=== PATIENT | male | born 1960 | race Caucasian/White ===

== ENCOUNTER 2016-10-27 12:37 | Emergency (ER) | payer MEDICARE ==
[~2016-10-27 12:37] MED LIST: ALBUTEROL17 GM INH; PREDNISONE PO
== END 2016-10-27 12:48 | disposition left against medical advice (07) ==
LOC: CED 12:37
DX: Z53.21 Procedure and treatment not carried out due to patient leaving prior to being seen by health care provider (principal)

== ENCOUNTER 2016-12-18 11:11 | Emergency (ER) | payer MEDICARE | END 2016-12-18 11:15 | disposition home or self-care (01) | LOC: CED 11:11 | DX: K59.00 Constipation, unspecified (principal); F17.200 Nicotine dependence, unspecified, uncomplicated | CPT/HCPCS: 99282 ==

== ENCOUNTER 2017-01-18 09:55 | Emergency (ER) | payer MEDICARE ==
--- NOTE | ~2017-01-18 | CT4 ---
[facility] A Service of [facility] & [facility] RADIOLOGY TEXT RESULTS PATIENT: FIOR ALARCON LOCATION: [facility] : 56 UNIT #: [id number] AGE: [address]: Maksim Lakhani MD SEX: M ORDER DR: [id number] [facility] [address] [place], [place] [address] [id number] MR#: [id number] Acc #: [id number] NAME: FIOR ALARCON : 1960 SEX: M STUDY DATE/TIME: 01/18/2017 12:05 UNIT: [facility] ROOM: STUDY DESCRIPTION: CT Abd and Pelv Wo Cont Attending Physician: Maksim Lakhani M.D. Ordering Physician: Maksim Lakhani M.D. Primary Care Physician: Artur Tapia M.D. MEDICAL IMAGING REPORT This report is preliminary unless electronic signature is present EXAM CT abdomen and pelvis without contrast 01/18/2017 1205 hours HISTORY 56-year-old man began urinating blood yesterday. Painless hematuria. Prior history of kidney stones 4-5 years ago. COMPARISON None. TECHNIQUE Helical noncontrasted images were obtained from the lung bases through the pubic symphysis. No oral or intravenous contrast was administered. Sagittal and coronal reconstructions were performed. Total exam DLP 738 mGy-cm. This CT examination was performed with one or more of the following radiation dose reduction techniques: automatic exposure control, adjustment of mA and/or kV according to patient size, and iterative reconstruction. FINDINGS Images through the lung bases are clear of acute density. There is minimal pleural thickening which is smooth at the medial left lung base. Images through the abdomen demonstrate mild low attenuation of the liver relative to the spleen which could indicate underlying fatty infiltration. There is no focal liver lesion. The spleen, pancreas, gallbladder and bile ducts are normal. The adrenal glands are normal. The kidneys demonstrate no mass, stone or distension. There is no ureterectasis on the right. There is a very small left upper ureteral calcification on image 79 measuring 3 mm which is at the level of the superior endplate of L4. There is no significant ureterectasis. No STS. [facility] A Service of [facility] & [facility] RADIOLOGY TEXT RESULTS PATIENT: FIOR ALARCON LOCATION: [facility] : 56 UNIT #: [id number] AGE: [address]: Maksim Lakhani MD SEX: M ORDER DR: distal ureteral calculus. The bladder is contracted. There is no definite bladder wall thickening seen however evaluation is limited given the lack of contrast and the lack of distension. Pelvic phleboliths are present. There are benign calcifications in the prostate. The stomach and small bowel are normal. The appendix is normal. There are scattered colonic diverticula throughout the colon without wall thickening. These are most numerous in the descending colon/sigmoid colon junction region. IMPRESSION 1. There is a 3 mm calculus in the left mid ureter at the level of the superior endplate of L4 without significant pelvocaliectasis. No intrarenal stones are seen. 2. The bladder is contracted and unopacified. No lesion is seen. 3. Normal appendix. 4. Diffuse scattered colonic diverticula with numerous diverticula in the descending colon and sigmoid colon. No definite wall thickening is seen. STAT * RESULT Dictated by... Lenora Almazan M.D. THIS IS AN ELECTRONICALLY VERIFIED REPORT Lenora Almazan M.D. at 01/18/2017 2:31 PM ALICJA/estevan TD: 01/18/2017 12:34 JOB #: [id number] MEDICAL IMAGING REPORT Page 1 of 1 COPY
[2017-01-18 11:06] LABS: URINE SOURCE CLEAN CATCH
[2017-01-18 11:11] LABS: URINE APPEARANCE CLOUDY; URINE BILIRUBIN NEG (NEG); URINE BLOOD 3+ (NEG); URINE COLOR DK YELLOW; URINE GLUCOSE NEG (NEG); URINE KETONE NEG (NEG); URINE LEUKOCYTE ESTERASE TRACE (NEG); URINE NITRATE NEG (NEG); URINE PROTEIN 1+ (NEG); URINE SPECIFIC GRAVITY 1.025 (1.003-1.035)
[2017-01-18 11:13] LABS: URBCS1 AUWI INNUM /[HPF] (0-2); URINE BACTERIA AUWI NEG (NEGATIVE); URINE SQUAMOUS EPITHELIAL CELL NONE SEEN /[HPF]
[2017-01-18 11:14] LABS: CULTURE INDICATED? NO
[2017-01-18 11:18] LABS: BASOPHIL# 0.1 X10e3 (0-0.3); BASOPHIL% 1.6 % (0-2.5); EOSINOPHIL# 0.5 X10e3 (0-0.7); EOSINOPHIL% 6.7 % (0.0-7.0); HEMATOCRIT 44.2 % (38.0-50.0); HEMOGLOBIN 15.1 gm/dL (13.0-16.0); LYMPHOCYTE# 1.9 X10e3 (1.0-3.5); LYMPHOCYTE% 27.8 % (17.0-45.0); MEAN CORPUSCULAR HEMOGLOBIN 29.1 PG (28-34); MEAN CORPUSCULAR HGB CONC 34.2 g/dL (30-36); MEAN PLATELET VOLUME 7.2 FL (6.5-11.5); MONOCYTE# 0.6 X10e3 (0-1.0); NEUTROPHIL# 3.8 X10e3 (1.5-7.1); NEUTROPHIL% 54.9 % (40-75); PLATELET COUNT 174 X10e3 (140-420); RED CELL DISTRIBUTION WIDTH 13.2 % (11.0-15.5); WHITE BLOOD COUNT 6.9 X10e3 (4.0-10.5)
[2017-01-18 11:19] LABS: DIFF IND NO
[2017-01-18 11:50] LABS: ALBUMIN SERUM 4.4 g/dL (3.5-5.0); BILIRUBIN, DIRECT 0.1 mg/dL (0.0-0.2); BILIRUBIN,INDIRECT 0.7 mg/dL (0.0-0.9); BILIRUBIN,TOTAL 0.8 mg/dL (0.2-2.0); GLOM FILT RATE Estimated 82.6 mL/min (>60); PROTEIN TOTAL SERUM 7.2 g/dL (6.0-8.3)
== END 2017-01-18 13:35 | disposition home or self-care (01) ==
LOC: CED 09:55
PROVIDERS: Emergency Medicine
DX: N20.0 Calculus of kidney (principal); F17.200 Nicotine dependence, unspecified, uncomplicated; Z87.442 Personal history of urinary calculi
CPT/HCPCS: 36415; 74176; 80048; 80076; 81003; 85025; 96361; 96374; 99284; J1885

== ENCOUNTER 2017-02-28 13:10 | Emergency (ER) | payer MEDICARE | END 2017-02-28 14:01 | disposition home or self-care (01) | LOC: CFTX 13:10 → CED 13:10 → CFTX 13:38 | DX: S05.02XA Injury of conjunctiva and corneal abrasion without foreign body, left eye, initial encounter (principal); K21.9 Gastro-esophageal reflux disease without esophagitis; J45.909 Unspecified asthma, uncomplicated; F41.9 Anxiety disorder, unspecified; F32.9 Major depressive disorder, single episode, unspecified; F17.200 Nicotine dependence, unspecified, uncomplicated; W22.8XXA Striking against or struck by other objects, initial encounter; Z86.73 Personal history of transient ischemic attack (TIA), and cerebral infarction without residual deficits | CPT/HCPCS: 99282 ==